=== PATIENT | female | born 1990 | race American Indian/Alaskan Native ===

== ENCOUNTER 2025-07-26 22:41 | Inpatient (IN) | payer OTHER ==
[~2025-07-26] VITALS: Ht 160 cm; Wt 90.7 kg
[~2025-07-26 22:41] MED LIST: PRENATE ADVANCE PO; PROCARDIA PO; Vistaryl PO
[2025-07-26] MEDS ORDERED: MAGNESIUM SULFATE IN WATER 4 GM/100 ML PIGGYBACK IV ONE (22:45)
[2025-07-26 22:56] VITALS: BP 100/67
[2025-07-26] MEDS ORDERED: RINGERS SOLUTION,LACTATED 1,000 ML IV SCH (23:15)
[2025-07-26] MEDS ORDERED: MAGNESIUM SULFATE IN WATER 500 ML IV SCH (23:15)
[2025-07-26] MEDS ORDERED: MAGNESIUM SULFATE IN WATER 4 GM/100 ML PIGGYBACK IV SCH (23:15)
[2025-07-26 23:59] VITALS: BP 112/71
[2025-07-27 00:07] LABS: BASO % 0.4 % (0.1-1.2); EOS # 0.18 (0.04-0.54); EOS % 1.5 % (0.7-7.0); LYMPH # 1.82 (1.18-3.74); LYMPH % 15.0 % (19.3-53.1); MEAN PLATELET VOLUME 10.20 fl (9.4-12.4); MONO # 0.83 (0.24-0.82); MONO % 6.8 % (4.7-12.5); NEUT # 8.79 (1.56-6.13); NEUT % 72.3 % (34.0-71.1); RED CELL DISTRIBUTION WIDTH 13.4 % (11.6-14.4)
[2025-07-27 00:07] LABS: URINE APPEARANCE Clear; URINE BILIRRUBIN Negative (NEGATIVE); URINE BLOOD Negative; URINE COLOR Yellow; URINE GLUCOSE Negative (NEGATIVE); URINE KETONE Trace (NEGATIVE); URINE LEUKOCYTE Trace; URINE NITRATE Negative; URINE PROTEIN Negative (NEGATIVE); URINE UROBILINOGEN 1.0 E.U./dl
[2025-07-27 00:10] LABS: URINE BACTERIA 3142.6 uL (0.0-1933); URINE EPITHELIAL CELLS 25.9 uL (0.0-38.8); URINE RBC 3.3 uL (0.0-20.8); URINE WBC 34.6 uL (0.0-23.2)
[2025-07-27 00:26] LABS: URINE CAST 1.02 uL (0.0-1.40)
[2025-07-27 00:29] LABS: BAND MAN 1.0 %; LYMPHOCYTE MAN 21.0 %; MONOCYTE MAN 8.0 %; NEUTROPHILS MAN 70.0 %
[2025-07-27 00:30] LABS: ALT/SGPT 35.0 U/L (12-78); AST/SGOT 15.0 U/L (15-37); BILIRUBIN TOTAL 0.26 mg/dL (0.3-1.2); BUN CREA RATIO 13.0 (7.0-25.0); CREATININE SERUM 0.77 mg/dL (0.55-1.02); GFR 85.81; GLOBULINA 3.3 G/DL (2.4-3.5); GLUCOSE FASTING 96.0 mg/dL (65-100); OSMOLALITY SERUM 280.0 MOSM/KG (275-295)
[2025-07-27] MEDS ORDERED: BETAMETHASONE ACETATE,SOD PHOS 30 MG/5 ML ML IM SCH ×2 (01:15)
[2025-07-27 03:27] VITALS: BP 99/61
[2025-07-27 06:25] VITALS: BP 98/61; O2SAT 99
[2025-07-27 11:52] VITALS: BP 115/65
[2025-07-27 15:33] VITALS: BP 104/65
[2025-07-27 19:34] VITALS: BP 105/64; O2SAT 100
[2025-07-27 23:26] VITALS: BP 93/56
[2025-07-28] MEDS ORDERED: BETAMETHASONE ACETATE,SOD PHOS 30 MG/5 ML ML IM SCH (01:00)
[2025-07-28 03:48] VITALS: BP 95/57
[2025-07-28 06:20] VITALS: BP 98/62; O2SAT 98
[2025-07-28] MEDS ORDERED: NIFEDIPINE 30 MG TAB.SA.OSM PO SCH (09:00)
[2025-07-28 12:10] VITALS: BP 97/59
[2025-07-28 13:00] VITALS: BP 105/65
[2025-07-28 16:00] VITALS: BP 108/66
[2025-07-29 00:39] VITALS: BP 97/65
[2025-07-29 04:00] VITALS: BP 101/64
[2025-07-29 09:00] VITALS: BP 101/66
== END 2025-07-29 09:21 | disposition home or self-care (01) | DRG 833 ==
LOC: OBS/DEL 22:41 → LDR 22:53 → OB/GYN 22:53 → OBS/DEL 22:53 → OB/GYN 07-28 10:06
PROVIDERS: ADMIT Obstetrics & Gynecology; ATTEND Obstetrics & Gynecology
PROC: 4A1HXCZ Monitoring of Products of Conception, Cardiac Rate, External Approach (ICD-10-PCS; principal; 2025-07-26)
DX: O47.03 False labor before 37 completed weeks of gestation, third trimester (principal); Z3A.36 36 weeks gestation of pregnancy

== ENCOUNTER 2025-08-18 13:01 | Outpatient (CLI) | payer OTHER | END 2025-08-18 13:51 | disposition home or self-care (01) | LOC: NST 13:01 | PROVIDERS: ATTEND Obstetrics & Gynecology | DX: Z34.83 Encounter for supervision of other normal pregnancy, third trimester (principal) ==

== ENCOUNTER 2025-08-28 08:40 | Outpatient (CLI) | payer OTHER | END 2025-08-28 09:38 | disposition home or self-care (01) | LOC: NST 08:40 | PROVIDERS: ATTEND Obstetrics & Gynecology Maternal & Fetal Medicine | DX: Z34.83 Encounter for supervision of other normal pregnancy, third trimester (principal) ==

== ENCOUNTER 2025-09-05 16:12 | Inpatient (IN) | payer OTHER ==
[~2025-09-05] VITALS: Ht 160 cm; Wt 93.0 kg
[2025-09-05 18:30] VITALS: BP 109/67
[2025-09-05] MEDS ORDERED: MAGNESIUM SULFATE IN WATER 4 GM/100 ML PIGGYBACK IV ONE (19:14)
[2025-09-05] MEDS ORDERED: MAGNESIUM SULFATE IN WATER 500 ML IV SCH (19:45)
[2025-09-05] MEDS ORDERED: RINGERS SOLUTION,LACTATED 1,000 ML IV SCH (19:45)
[2025-09-05] MEDS ORDERED: MAGNESIUM SULFATE IN WATER 100 ML IV ONE (19:45)
[2025-09-05 20:17] LABS: URINE APPEARANCE Clear; URINE BACTERIA 478.7 uL (0.0-1933); URINE BILIRRUBIN Negative (NEGATIVE); URINE BLOOD Negative; URINE COLOR Yellow; URINE EPITHELIAL CELLS 15.8 uL (0.0-38.8); URINE GLUCOSE Negative (NEGATIVE); URINE KETONE 15 (NEGATIVE); URINE LEUKOCYTE Trace; URINE NITRATE Negative; URINE PROTEIN Negative (NEGATIVE); URINE UROBILINOGEN 0.2 E.U./dl; URINE WBC 7.3 uL (0.0-23.2)
[2025-09-05 20:19] LABS: URINE CAST 0.43 uL (0.0-1.40); URINE RBC 1.1 uL (0.0-20.8)
[2025-09-05 20:20] LABS: BASO % 0.6 % (0.1-1.2); EOS # 0.13 (0.04-0.54); EOS % 1.1 % (0.7-7.0); LYMPH # 1.34 (1.18-3.74); LYMPH % 11.4 % (19.3-53.1); MEAN PLATELET VOLUME 10.30 fl (9.4-12.4); MONO # 0.97 (0.24-0.82); MONO % 8.2 % (4.7-12.5); NEUT # 8.60 (1.56-6.13); NEUT % 72.9 % (34.0-71.1); RED CELL DISTRIBUTION WIDTH 13.4 % (11.6-14.4)
[2025-09-05] MEDS ORDERED: NIFEDIPINE20 MG PO (20:49)
[2025-09-05 21:07] LABS: BAND MAN 2.0 %; EOSINOPHIL MAN 1.0 %; LYMPHOCYTE MAN 13.0 %; METAMYELOCYTE 3.0 %; MONOCYTE MAN 6.0 %; NEUTROPHILS MAN 72.0 %
[2025-09-05 21:08] LABS: MYELOCYTE 3.0 %
[2025-09-05 23:59] VITALS: BP 112/66
[2025-09-06 03:39] VITALS: BP 90/64
[2025-09-06 07:19] VITALS: BP 93/57; O2SAT 99
[2025-09-06 11:04] VITALS: BP 105/66
[2025-09-06] MEDS ORDERED: ACETAMINOPHEN 500 MG GEL..CAP PO ONE (12:32)
[2025-09-06] MEDS ORDERED: ACETAMINOPHEN 500 MG GEL..CAP PO PRN (13:00)
[2025-09-06 15:10] VITALS: BP 96/59; O2SAT 98
[2025-09-06 19:00] VITALS: BP 99/63
[2025-09-06 23:28] VITALS: BP 95/60
[2025-09-07 03:21] VITALS: BP 92/59
[2025-09-07 06:14] VITALS: BP 105/69; O2SAT 98
== END 2025-09-07 08:59 | disposition home or self-care (01) | DRG 833 ==
LOC: NST 16:12 → LDR 19:17
PROVIDERS: ADMIT Obstetrics & Gynecology; ATTEND Obstetrics & Gynecology
PROC: 4A1HXCZ Monitoring of Products of Conception, Cardiac Rate, External Approach (ICD-10-PCS; principal; 2025-09-05)
DX: O47.03 False labor before 37 completed weeks of gestation, third trimester (principal); Z3A.31 31 weeks gestation of pregnancy

== ENCOUNTER 2025-10-01 20:03 | Inpatient (IN) | payer OTHER ==
[~2025-10-01] VITALS: Ht 160 cm; Wt 9.5 kg
[2025-10-01 19:15] VITALS: BP 130/83
[~2025-10-01 20:03] MED LIST changes: +NIFEDIPINE20 MG PO
[2025-10-01] MEDS ORDERED: AMPICILLIN SODIUM 2,000 MG VIAL IV ONE (20:15)
[2025-10-01] MEDS ORDERED: MORPHINE SULFATE 4 MG/ML VIAL IV PRN (20:15)
[2025-10-01] MEDS ORDERED: RINGERS SOLUTION,LACTATED 1,000 ML IV SCH (20:15)
[2025-10-01 20:54] LABS: BASO % 0.4 % (0.1-1.2); EOS # 0.19 (0.04-0.54); EOS % 1.6 % (0.7-7.0); LYMPH # 1.82 (1.18-3.74); LYMPH % 14.9 % (19.3-53.1); MEAN PLATELET VOLUME 10.50 fl (9.4-12.4); MONO # 0.85 (0.24-0.82); MONO % 6.9 % (4.7-12.5); NEUT # 8.89 (1.56-6.13); NEUT % 72.5 % (34.0-71.1); RED CELL DISTRIBUTION WIDTH 13.4 % (11.6-14.4)
[2025-10-01] MEDS ORDERED: AMPICILLIN SODIUM 1,000 MG VIAL IV SCH (21:00)
[2025-10-01 21:21] LABS: INR < 0.93
[2025-10-01 21:25] LABS: ALT/SGPT 30.0 U/L (12-78); AST/SGOT 20.0 U/L (15-37); BILIRUBIN TOTAL 0.4 mg/dL (0.3-1.2); BUN CREA RATIO 12.0 (7.0-25.0); CREATININE SERUM 0.6 mg/dL (0.55-1.02); GFR 114.43; GLOBULINA 4.0 G/DL (2.4-3.5); GLUCOSE FASTING 82.0 mg/dL (65-100); OSMOLALITY SERUM 280.0 MOSM/KG (275-295)
[2025-10-01 21:35] LABS: BAND MAN 1.0 %; EOSINOPHIL MAN 1.0 %; LYMPHOCYTE MAN 19.0 %; METAMYELOCYTE 1.0 %; MONOCYTE MAN 1.0 %; NEUTROPHILS MAN 77.0 %
[2025-10-01 23:27] VITALS: BP 110/58; O2SAT 99
[2025-10-02] VITALS (9 sets, daily range): BP systolic 110–143; BP diastolic 57–74; O2SAT 99
[2025-10-02] MEDS ORDERED: CHLORHEXIDINE GLUCONATE 120 ML BOTTLE TP SCH (04:30)
[2025-10-02] MEDS ORDERED: OXYTOCIN 1,000 ML IV ONE (04:30)
[2025-10-02] MEDS ORDERED: METHYLERGONOVINE MALEATE 0.2 MG/ML AMPUL IV PRN (04:45)
[2025-10-02] MEDS ORDERED: LIDOCAINE HCL 1% 10ML VIAL IJ ONE (07:00)
[2025-10-02] MEDS ORDERED: ERYTHROMYCIN BASE OPHT 1GM EACH TUBE OP ONE (07:00)
[2025-10-02 16:54] LABS: BASO % 0.2 % (0.1-1.2); EOS # 0.09 (0.04-0.54); EOS % 0.6 % (0.7-7.0); LYMPH # 1.40 (1.18-3.74); LYMPH % 8.8 % (19.3-53.1); MEAN PLATELET VOLUME 10.50 fl (9.4-12.4); MONO # 0.97 (0.24-0.82); MONO % 6.1 % (4.7-12.5); NEUT # 13.26 (1.56-6.13); NEUT % 83.1 % (34.0-71.1); RED CELL DISTRIBUTION WIDTH 13.4 % (11.6-14.4)
[2025-10-02] MEDS ORDERED: SENNA/DOCUSATE SODIUM 1 TAB TABLET PO SCH (21:00)
[2025-10-03 01:38] VITALS: BP 123/77
[2025-10-03 08:00] VITALS: BP 113/72
[2025-10-03 16:36] VITALS: BP 116/68
[2025-10-04 02:12] VITALS: BP 114/74
[2025-10-04 08:53] VITALS: BP 119/81
== END 2025-10-04 18:11 | disposition home or self-care (01) | DRG 805 ==
LOC: LDR 20:03 → OB/GYN 20:03
PROVIDERS: ADMIT Obstetrics & Gynecology Gynecology; ATTEND Obstetrics & Gynecology Gynecology
PROC: 4A1HXCZ Monitoring of Products of Conception, Cardiac Rate, External Approach (ICD-10-PCS; 2025-10-01)
PROC: 10E0XZZ Delivery of Products of Conception, External Approach (ICD-10-PCS; principal; 2025-10-02)
PROC: 0HQ9XZZ Repair Perineum Skin, External Approach (ICD-10-PCS; 2025-10-02)
DX: O70.1 Second degree perineal laceration during delivery (principal); O60.14X0 Preterm labor third trimester with preterm delivery third trimester, not applicable or unspecified; Z37.0 Single live birth; O69.81X0 Labor and delivery complicated by cord around neck, without compression, not applicable or unspecified; Z3A.36 36 weeks gestation of pregnancy